=== PATIENT | male | born 1965 | race Caucasian/White ===

== ENCOUNTER 2017-08-08 10:22 | Emergency (ER) | payer BC ==
[2017-08-08 10:35] VITALS: BP 154/106
[2017-08-08] MEDS ORDERED: Tetan/Diph/Pertus SYR(Tdap)* 0.5 ML SYR(BOOSTRIX) use SYR IM ONE (10:36)
[2017-08-08] MEDS ORDERED: Lidocaine 2% PF * 5 ML VIAL INJ ONE (10:41)
--- NOTE | 2017-08-08 10:41 | UC ---
Laceration HPI - HPI Summary HPI Summary: Pt presents with laceration to nasal bridge since this morning. He tells me that he was trying to move his mailbox and pull it out of the ground - it came loose and hit him in the nose. He sustained a laceration, but was able to stop the bleeding with direct pressure. About 1 hour later it started to bleed again so he came to . Unsure when his last tetanus was. - History Of Current Complaint Chief Complaint: UCLaceration Stated Complaint: NASAL LAC Time Seen by Provider: 08/08/17 10:36 Hx Obtained From: Patient Laceration Location: Face Mechanism Of Injury: Sharp Trauma Onset/Duration: Sudden Onset Severity: Mild Pain Intensity: 2 Pain Scale Used: 0-10 Numeric - Allergies/Home Medications Allergies/Adverse Reactions: Allergies Allergy/AdvReac Type Severity Reaction Status Date / Time No Known Allergies Allergy Verified 08/08/17 10:31 PMH/Surg Hx/FS Hx/Imm Hx Previously Healthy: Yes Cardiovascular History: Hypertension - Surgical History Surgical History: None - Family History Known Family History: Positive: Cardiac Disease, Hypertension - Social History Occupation: Employed Full-time Lives: With Family Alcohol Use: Weekly Substance Use Type: None Smoking Status (MU): Never Smoked Tobacco Review of Systems Constitutional: Negative Skin: Other - Laceration to nasal bridge Eyes: Negative ENT: Negative Respiratory: Negative Cardiovascular: Negative Gastrointestinal: Negative Musculoskeletal: Negative Neurological: Negative Psychological: Negative All Other Systems Reviewed And Are Negative: Yes Physical Exam Triage Information Reviewed: Yes Appearance: Well-Appearing, No Pain Distress, Well-Nourished Vital Signs: Initial Vital Signs Temp 97 F 08/08/17 10:32 Pulse 75 08/08/17 10:32 Resp 15 08/08/17 10:32 BP 154/106 08/08/17 10:32 Pulse Ox 100 08/08/17 10:32 Vital Signs Reviewed: Yes Eyes: Positive: Conjunctiva Clear. Negative: Conjunctiva Inflamed, Discharge ENT: Positive: Other - Mild TTP over laceration site at nasal bridge. No obvious bony deformities. Negative: Nasal congestion, Nasal drainage, Sinus tenderness Neck: Positive: Supple, Nontender, No Lymphadenopathy Respiratory: Positive: Normal breath sounds, No respiratory distress, No accessory muscle use Cardiovascular: Positive: RRR, No Murmur Neurological: Positive: Alert Psychological: Positive: Age Appropriate Behavior Skin: Positive: Other - 1.0cm linear horizontal laceration to nasal bridge. No bleeding or FB Laceration Repair - Laceration Repair 1 Description: Linear Laceration Size After Repair: Length (cm) - 1.0 Modified For Repair: No Type Injection: Local Anesthesia Used: 2.0% Lido Cleansing Completed Via Routine Prep: Yes Closure Material: Sutures - Three 6-0 Closure Method: Single Layer Suture Of: Skin Suture Type: Nylon Laceration Course/Dx - Course/Dx Course Of Treatment: A time out was performed, witnessed, and signed. The area was irrigated with 50mL sterile saline. 2mL of 2% lidocaine without epi was administered and good anesthetization was achieved. In the usual sterile fashion , three 6-0 nylon sutures were placed. Pt tolerated procedure well. - Differential Dx - Laceration/Wound Provider Diagnoses: 1.0cm laceration to nasal bridge Discharge - Discharge Plan Condition: Stable Disposition: HOME Patient Education Materials: Care For Your Stitches (DC) Referrals: Rangel Cho MD [Primary Care Provider] - Additional Instructions: If you develop a fever, shortness of breath, chest pain, new or worsening symptoms - please call your PCP or go to the ED. Your blood pressure was high at todays visit. Please see your primary provider within 4 weeks for recheck and re-evaluation. 1) Please keep the area clean and dry 2) If you develop a fever, colored or thick discharge, increased pain or swelling - please call your PCP or go to the ED. 3) Please return in 4-5 days to have your THREE sutures removed.
== END 2017-08-08 11:48 | disposition home or self-care (01) ==
LOC: UCEAST 10:22
DX: S01.21XA Laceration without foreign body of nose, initial encounter (principal); W22.8XXA Striking against or struck by other objects, initial encounter; Y92.9 Unspecified place or not applicable
CPT/HCPCS: 12011; 90471; 90715; 99211; G0463

== ENCOUNTER 2017-08-12 14:53 | Emergency (ER) | payer BC ==
[2017-08-12 14:59] VITALS: BP 145/96
--- NOTE | 2017-08-12 15:09 | UC ---
HPI Wound/Suture Re-check - HPI Summary HPI Summary: here for 3 stitches to be removed from bridge of nose---were put in Tuesday here after he hit is nose on a mail box-healing well no issues or concerned-area scabbed and appears well approximated - History Of Current Complaint Chief Complaint: UCLaceration Stated Complaint: STITCH REMOVAL Time Seen by Provider: 08/12/17 15:03 Hx Obtained From: Patient Onset/Duration: Sudden Onset, Lasting Days - 4 Pain Intensity: 0 - Allergies/Home Medications Allergies/Adverse Reactions: Allergies Allergy/AdvReac Type Severity Reaction Status Date / Time No Known Allergies Allergy Verified 08/12/17 15:00 PMH/Surg Hx/FS Hx/Imm Hx Previously Healthy: No Cardiovascular History: Hypertension - Surgical History Surgical History: None - Family History Known Family History: Positive: Cardiac Disease, Hypertension - Social History Occupation: Employed Full-time Lives: With Family Alcohol Use: Weekly Substance Use Type: None Smoking Status (MU): Never Smoked Tobacco - Immunization History Most Recent Tetanus Shot: 2018 Review of Systems Constitutional: Negative Skin: Negative, Other - healing scabbed laceration on bridge of nose Eyes: Negative ENT: Negative Respiratory: Negative Cardiovascular: Negative Gastrointestinal: Negative Genitourinary: Negative Motor: Negative Neurovascular: Negative Musculoskeletal: Negative Neurological: Negative Psychological: Negative Is Patient Immunocompromised?: No All Other Systems Reviewed And Are Negative: Yes Physical Exam Triage Information Reviewed: Yes Appearance: Well-Appearing, No Pain Distress, Well-Nourished Vital Signs: Initial Vital Signs Temp 96.9 F 08/12/17 14:56 Pulse 88 08/12/17 14:56 Resp 18 08/12/17 14:56 BP 145/96 08/12/17 14:56 Pulse Ox 100 08/12/17 14:56 Vital Signs Reviewed: Yes Eye Exam: Normal Eyes: Positive: Conjunctiva Clear ENT Exam: Normal ENT: Positive: Normal ENT inspection, Hearing grossly normal, TMs normal. Negative: Pharyngeal erythema, Nasal congestion, Nasal drainage, Tonsillar swelling, Tonsillar exudate, Trismus, Muffled voice, Hoarse voice, Dental tenderness, Sinus tenderness, Uvula midline Dental Exam: Normal Neck exam: Normal Neck: Positive: Supple, Nontender, No Lymphadenopathy Respiratory Exam: Normal Respiratory: Positive: Chest non-tender, Lungs clear, Normal breath sounds, No respiratory distress, No accessory muscle use Cardiovascular Exam: Normal Cardiovascular: Positive: RRR, No Murmur, Pulses Normal, Brisk Capillary Refill Musculoskeletal Exam: Normal Musculoskeletal: Positive: Strength Intact, ROM Intact, No Edema Neurological Exam: Normal Neurological: Positive: Alert, Muscle Tone Normal Psychological Exam: Normal Psychological: Positive: Normal Response To Family Skin Exam: Normal Re-Evaluation - Re-Evaluation First Eval Change: Improved - sutures removed 3 steri strips applied patient toled well no bleedinh or change in wound appromimation Course/Dx - Course Course Of Treatment: steri strips, sunburn precautions follow with pcp prn - Differential Dx - Laceration/Wound Provider Diagnoses: Healing wound on nose---suture removal Discharge - Discharge Plan Condition: Stable Disposition: HOME Patient Education Materials: Hypertension (ED), Stitches Removal (ED) Referrals: Rangel Cho MD [Primary Care Provider] - 2 Weeks
== END 2017-08-12 15:28 | disposition home or self-care (01) ==
LOC: UCEAST 14:53
DX: Z48.02 Encounter for removal of sutures (principal)
CPT/HCPCS: 99211; G0463